=== PATIENT | female | born 1935 | race Caucasian/White ===

== ENCOUNTER → 2017-04-08 | Outpatient (CLI) | payer MEDICARE, OTHER | END | disposition home or self-care (01) | LOC: CFH 10:32 | PROVIDERS: ATTEND Physician Assistant | DX: M47.26 Other spondylosis with radiculopathy, lumbar region (principal); M48.06 Spinal stenosis, lumbar region; M12.88 Other specific arthropathies, not elsewhere classified, other specified site; M79.604 Pain in right leg | CPT/HCPCS: 72148 ==

== ENCOUNTER → 2018-05-29 | Outpatient (CLI) | payer OTHER | END | disposition home or self-care (01) | LOC: CFH 09:36 | PROVIDERS: ATTEND Internal Medicine | DX: Z13.820 Encounter for screening for osteoporosis (principal); M85.80 Other specified disorders of bone density and structure, unspecified site; N95.1 Menopausal and female climacteric states | CPT/HCPCS: 77080 ==

== ENCOUNTER → 2019-01-08 | Outpatient (CLI) | payer OTHER ==
[~2019-01-08] MED LIST: ATOR20TA37 PO; CETI10TA24 PO; CHOL200024 PO; CRAN500C7 PO; FAMO20TA7 PO; FLUT9.9S NS; LACT1CAP40 PO; LIDOCAINE 1%, 20ML ONE; LIDOCAINE 1%-EPI 1:100K, 30ML ONE; MULT-257 PO; PROP15DR EACHEYE; SODIUM BICARBONATE 4.0%, 5ML ONE
== END | disposition home or self-care (01) ==
LOC: CFH 08:55
PROVIDERS: ATTEND Surgery
DX: C50.912 Malignant neoplasm of unspecified site of left female breast (principal)
CPT/HCPCS: 19281; J3490

== ENCOUNTER 2019-01-20 14:46 | Outpatient (CLI) | payer OTHER ==
[~2019-01-20 14:46] MED LIST changes: -LIDOCAINE 1%, 20ML ONE; -LIDOCAINE 1%-EPI 1:100K, 30ML ONE; -SODIUM BICARBONATE 4.0%, 5ML ONE
== END 2019-01-20 23:59 | disposition home or self-care (01) ==
LOC: RAD 14:46
PROVIDERS: ATTEND Surgery
DX: C50.412 Malignant neoplasm of upper-outer quadrant of left female breast (principal); R59.1 Generalized enlarged lymph nodes
CPT/HCPCS: 38792; A9541

== ENCOUNTER 2019-01-21 05:44 | Day surgery (SDC) | payer OTHER ==
[~2019-01-21] VITALS: Ht 154.9 cm; Wt 79.1 kg
[~2019-01-21 05:44] MED LIST changes: +LIDOCAINE-MPF 1%, 5ML ONE
[2019-01-21] MEDS ORDERED: LACTATED RINGERS 1,000 ML IV SCH (06:01)
[2019-01-21] MEDS ORDERED: CLINDAMYCIN PMX 900MG/50ML 50 ML IV STA (06:04)
[2019-01-21 06:20] VITALS: BP 135/82
[2019-01-21] MEDS ORDERED: ACETAMINOPHEN 500 MG TABLET PO ONE (06:30)
[2019-01-21] MEDS ORDERED: ONDANSETRON ODT 8 MG PO ONE (06:30)
[2019-01-21] MEDS ORDERED: GABAPENTIN 300 MG CAPSULE PO ONE (06:30)
[2019-01-21] MEDS ORDERED: SCOPOLAMINE PATCH, 1.5MG PATCH.TD72 TD ONE (06:30)
[2019-01-21] MEDS ORDERED: FENTANYL PF 250 MCG/5ML ONE (06:56)
[2019-01-21] MEDS ORDERED: CEFAZOLIN 1,000 MG ONE (06:58)
[2019-01-21] MEDS ORDERED: ISOSULFAN BLUE 10 MG/ML, 5ML IV ONE (06:58)
[2019-01-21] MEDS ORDERED: BUPIVACAINE/PF-EPI 0.5% 1:200K ONE (06:58)
[2019-01-21] MEDS ORDERED: BACITRACIN 50,000 UNIT ONE (06:59)
[2019-01-21] MEDS ORDERED: DEXAMETHASONE 4 MG/ML, 1ML ONE (07:28)
[2019-01-21] MEDS ORDERED: ONDANSETRON 2MG/ML, 2ML ONE (07:28)
[2019-01-21] MEDS ORDERED: MEPERIDINE/PF 25MG/0.5ML IVPush PRN (08:30)
[2019-01-21] MEDS ORDERED: FENTANYL PF 100 MCG/2ML IV PRN (08:30)
[2019-01-21] MEDS ORDERED: HYDROmorphone 2 MG/ML, 1ML IVPush PRN (08:30)
[2019-01-21] MEDS ORDERED: ONDANSETRON 2MG/ML, 2ML IV PRN (08:30)
[2019-01-21] MEDS ORDERED: PROMETHAZINE 25 MG/ML, 1ML IV PRN (08:30)
[2019-01-21] MEDS ORDERED: OXYcodone 5 MG/5 ML ORAL.SOL UDC PO PRN (08:30)
[2019-01-21] MEDS ORDERED: LABETALOL 5MG/ML, 20ML IV PRN (08:30)
[2019-01-21] MEDS ORDERED: hydrALAzine 20 MG/ML, 1ML IV PRN (08:30)
[2019-01-21] MEDS ORDERED: ROCURONIUM 10MG/ML,5ML ONE (08:41)
[2019-01-21] MEDS ORDERED: PROPOFOL 10 MG/ML, 20ML ONE (08:41)
== END 2019-01-21 14:15 | disposition home or self-care (01) ==
LOC: OUT 05:44
PROVIDERS: ATTEND Surgery
DX: D05.12 Intraductal carcinoma in situ of left breast (principal); R59.1 Generalized enlarged lymph nodes; E78.5 Hyperlipidemia, unspecified; E66.9 Obesity, unspecified; Z68.32 Body mass index [BMI] 32.0-32.9, adult; Z87.891 Personal history of nicotine dependence; Z88.0 Allergy status to penicillin; Z88.8 Allergy status to other drugs, medicaments and biological substances
CPT/HCPCS: 19301; 38525; 76098; 88305; 88307; 88329; 88333; C1729; J1100; J2405; J2704; J3010; J7120; Q0162; J0690

== ENCOUNTER 2019-02-08 08:02 | Outpatient (CLI) | payer OTHER ==
[~2019-02-08 08:02] MED LIST changes: -LIDOCAINE-MPF 1%, 5ML ONE
== END 2019-02-08 23:59 | disposition home or self-care (01) ==
LOC: ROC 08:02
PROVIDERS: ATTEND Radiology Radiation Oncology
DX: C50.912 Malignant neoplasm of unspecified site of left female breast (principal); E78.5 Hyperlipidemia, unspecified
CPT/HCPCS: 99214; G0463

== ENCOUNTER → 2019-11-16 | Outpatient (CLI) | payer OTHER ==
[~2019-11-16] MED LIST changes: +ANAS1TAB PO; +BIOT25005 PO; -CETI10TA24 PO; +CETI10TA26 PO; +OFLO5DRO7 EACHEYE; +PREDNISONE ACETATE EACHEYE
== END | disposition home or self-care (01) ==
LOC: STAR 13:37
PROVIDERS: ATTEND Orthopaedic Surgery
DX: Z01.818 Encounter for other preprocedural examination (principal); M13.842 Other specified arthritis, left hand; G56.01 Carpal tunnel syndrome, right upper limb
CPT/HCPCS: 93005

== ENCOUNTER 2019-11-25 05:59 | Day surgery (SDC) | payer OTHER ==
[~2019-11-25] VITALS: Ht 152.4 cm; Wt 78.0 kg
[2019-11-25 06:22] VITALS: BP 153/86
[2019-11-25] MEDS ORDERED: LACTATED RINGERS 1,000 ML IV SCH (06:26)
[2019-11-25] MEDS ORDERED: FENTANYL PF 100 MCG/2ML ONE (06:36)
[2019-11-25] MEDS ORDERED: PROPOFOL 10 MG/ML, 20ML ONE (06:37)
[2019-11-25] MEDS ORDERED: BUPIVACAINE/PF 0.5% ONE (06:39)
[2019-11-25] MEDS ORDERED: LIDOCAINE 1%, 20ML ONE ×2 (06:40→08:14)
[2019-11-25] MEDS ORDERED: CLINDAMYCIN 150 MG/ML, 6ML ONE (06:44)
[2019-11-25] MEDS ORDERED: BETAMETHASONE 6 MG/ML, 5ML IM ONE ×2 (07:08→07:25)
[2019-11-25] MEDS ORDERED: LIDOCAINE 1%, 20ML INFIL ONE (07:23)
[2019-11-25] MEDS ORDERED: BUPIVACAINE/PF 0.5% INFIL ONE (07:24)
[2019-11-25] MEDS ORDERED: MEPERIDINE/PF 25MG/ML,1ML IVPush PRN (07:30)
[2019-11-25] MEDS ORDERED: LABETALOL 5MG/ML, 20ML IV PRN (07:30)
[2019-11-25] MEDS ORDERED: ACETAMINOPHEN 325 MG TABLET PO PRN (07:30)
[2019-11-25] MEDS ORDERED: FENTANYL PF 100 MCG/2ML IV PRN (07:30)
[2019-11-25] MEDS ORDERED: ONDANSETRON 2MG/ML, 2ML IV PRN (07:30)
[2019-11-25] MEDS ORDERED: OXYcodone 5 MG/5 ML ORAL.SOL UDC PO PRN (07:30)
[2019-11-25] MEDS ORDERED: hydrALAzine 20 MG/ML, 1ML IV PRN (07:30)
== END 2019-11-25 09:03 | disposition home or self-care (01) ==
LOC: OUT 05:59
PROVIDERS: ATTEND Orthopaedic Surgery
DX: G56.01 Carpal tunnel syndrome, right upper limb (principal); M18.12 Unilateral primary osteoarthritis of first carpometacarpal joint, left hand; E78.5 Hyperlipidemia, unspecified; K21.9 Gastro-esophageal reflux disease without esophagitis; C50.919 Malignant neoplasm of unspecified site of unspecified female breast; Z79.899 Other long term (current) drug therapy; Z88.0 Allergy status to penicillin; Z88.8 Allergy status to other drugs, medicaments and biological substances
CPT/HCPCS: 20600; 64721; J0702; J2704; J3010; J7120

== ENCOUNTER → 2021-05-28 | Outpatient (CLI) | payer OTHER ==
[~2021-05-28] MED LIST changes: -CETI10TA26 PO; +CETI10TA76 PO; +CHOL20009 PO; +FEXO1TAB29 PO; +GABA600T7 PO; -LACT1CAP40 PO; +LACT1CAP45 PO
[2021-05-28 12:58] LABS: BASOPHILS % (AUTO) 1 % (0-1); EOSINOPHILS % (AUTO) 1 % (1-7); LYMPHOCYTES % (AUTO) 24 % (22-44); MEAN CORPUSCULAR HEMOGLOBIN 29.2 pg (27.0-34.8); MEAN CORPUSCULAR HGB CONC 33.1 g/dL (32.4-35.8); MEAN PLATELET VOLUME 6.9 fL (7.4-10.4); MONOCYTES % (AUTO) 7 % (2-9); NEUTROPHILS % (AUTO) 68 % (42-75); PLATELET COUNT 242 x10^3/uL (130-400); RED CELL DISTRIBUTION WIDTH 15.6 % (9.6-15.2)
[2021-05-28 13:15] LABS: ANION GAP 7 mmol/L (5-15); CALCIUM 9.8 mg/dL (8.5-10.1); CHLORIDE 109 mmol/L (98-107); CREATININE 0.74 mg/dL (0.55-1.02)
[2021-05-28 13:16] LABS: MICROSCOPIC AUTO
[2021-05-28 13:20] LABS: INTERNATIONAL NORMALIZED RATIO 0.96 (0.93-1.1); PROTHROMBIN TIME 10.3 Seconds (9.6-11.5)
== END | disposition home or self-care (01) ==
LOC: STAR 11:25
PROVIDERS: ATTEND Neurological Surgery
DX: Z01.818 Encounter for other preprocedural examination (principal); M47.817 Spondylosis without myelopathy or radiculopathy, lumbosacral region; M48.061 Spinal stenosis, lumbar region without neurogenic claudication
CPT/HCPCS: 36415; 71046; 72131; 80048; 81001; 85025; 85610; 85730; 87077; 87086; 93005

== ENCOUNTER 2021-06-06 08:44 | Inpatient (IN) | payer OTHER, MEDICARE ==
[2021-06-04 15:15] LABS: MICROSCOPIC AUTO
[~2021-06-06] VITALS: Ht 152.4 cm; Wt 81.1 kg
[~2021-06-06 08:44] MED LIST changes: +BUPIVACAINE/PF 0.25% ONE; +EPINEPHRINE 1 MG/ML, 1ML ONE; +GENTAMICIN 80 MG/2 ML ONE; +VANCOMYCIN 1,000 MG ONE
[2021-06-06 10:12] VITALS: BP 162/84
[2021-06-06] MEDS ORDERED: CHLORHEXIDINE 15 ML UDC ONE (10:12)
[2021-06-06] MEDS ORDERED: CHLORHEXIDINE 15 ML UDC PO ONE (10:30)
[2021-06-06] MEDS ORDERED: LACTATED RINGERS 1,000 ML IV SCH (10:30)
[2021-06-06] MEDS ORDERED: SUCCINYLCHOLINE 20 MG/ML, 10ML ONE (10:34)
[2021-06-06] MEDS ORDERED: FENTANYL PF 250 MCG/5ML ONE (10:34)
[2021-06-06] MEDS ORDERED: GLYCOPYRROLATE 0.2MG/1ML, 5ML ONE (10:34)
[2021-06-06] MEDS ORDERED: NEOSTIGMINE 1 MG/ML, 10ML ONE (10:34)
[2021-06-06] MEDS ORDERED: DEXAMETHASONE 4 MG/ML, 1ML ONE (10:34)
[2021-06-06] MEDS ORDERED: ROCURONIUM 10MG/ML,5ML ONE (10:34)
[2021-06-06] MEDS ORDERED: PROPOFOL 10 MG/ML, 20ML ONE (10:34)
[2021-06-06] MEDS ORDERED: CEFAZOLIN 1,000 MG ONE (10:34)
[2021-06-06] MEDS ORDERED: ONDANSETRON 2MG/ML, 2ML ONE (10:34)
[2021-06-06] MEDS ORDERED: CLINDAMYCIN 150 MG/ML, 6ML ONE (11:20)
[2021-06-06] MEDS ORDERED: ALBUTEROL SULFATE 2.5 MG/3 ML NPPB PRN (11:30)
[2021-06-06] MEDS ORDERED: HALOPERIDOL 5 MG/ML IV PRN (11:30)
[2021-06-06] MEDS ORDERED: OXYcodone 5 MG/5 ML ORAL.SOL UDC PO PRN (11:30)
[2021-06-06] MEDS ORDERED: hydrALAzine 20 MG/ML, 1ML IV PRN (11:30)
[2021-06-06] MEDS ORDERED: HYDROmorphone 2 MG/ML, 1ML IVPush PRN (11:30)
[2021-06-06] MEDS ORDERED: PROMETHAZINE 25 MG/ML, 1ML IV PRN (11:30)
[2021-06-06] MEDS ORDERED: LABETALOL 5MG/ML, 20ML IV PRN (11:30)
[2021-06-06] MEDS ORDERED: HEPARIN 1,000 UNITS/ML, 30ML IVPB ONE (12:30)
[2021-06-06] MEDS ORDERED: VANCOMYCIN 1,000 MG IM ONE ×2 (12:39→12:40)
[2021-06-06] MEDS ORDERED: BUPIVACAINE/PF-EPI 0.25% 1:200K INFIL ONE (12:39)
[2021-06-06] MEDS ORDERED: OXYcodone 5 MG/5 ML ORAL.SOL UDC ONE (15:05)
[2021-06-06] MEDS ORDERED: FENTANYL PF 100 MCG/2ML ONE ×2 (15:05→16:03)
[2021-06-06] MEDS ORDERED: ACETAMINOPHEN 650 MG/20.3 ML UDC ONE (15:05)
[2021-06-06] MEDS: FENTANYL PF 100 MCG/2ML IV PRN ×3 (15:07→16:04)
[2021-06-06] MEDS ORDERED: HYDROmorphone PCA 30 MG/30 ML IV PRN (15:30)
[2021-06-06] MEDS ORDERED: BISACODYL 10 MG SUPP PR PRN (18:00)
[2021-06-06] MEDS ORDERED: OXYcodone IR 5MG TABLET PO PRN (18:00)
[2021-06-06] MEDS ORDERED: MAGNESIUM HYDROXIDE 8%, 30ML UDC PO PRN (18:00)
[2021-06-06] MEDS ORDERED: DIPHENHYDRAMINE 50 MG/ML, 1ML IVPush PRN (18:00)
[2021-06-06] MEDS ORDERED: morphine SULFATE 10 MG/ML, 1ML IV PRN (18:00)
[2021-06-06] MEDS ORDERED: SODIUM CHLORIDE 0.9% 1,000ML IV PRN (18:00)
[2021-06-06] MEDS ORDERED: DIPHENHYDRAMINE 25 MG CAPSULE PO PRN (18:00)
[2021-06-06] MEDS ORDERED: PROMETHAZINE 25 MG/ML, 1ML IM PRN (18:00)
[2021-06-06] MEDS: CIPROFLOXACIN 500 MG TABLET PO SCH ×2 (18:30→21:13)
[2021-06-06 19:19] VITALS: BP 120/72
[2021-06-06] MEDS: NS + 20MEQ KCL 1,000 ML IV SCH (19:43)
[2021-06-06] MEDS: ARTIFICIAL TEARS 15 DROP/ML BOTTLE OP SCH (21:00)
[2021-06-06] MEDS: FAMOTIDINE 40 MG TABLET PO SCH (21:12)
[2021-06-06] MEDS: ATORVASTATIN 20 MG TABLET PO SCH (21:13)
[2021-06-06] MEDS: GABAPENTIN 100 MG CAPSULE PO SCH (21:13)
[2021-06-06] MEDS: LORATADINE/PSE 5/120MG TAB.ER.12H PO SCH (21:14)
[2021-06-06] MEDS: ONDANSETRON 2MG/ML, 2ML IV PRN (21:14)
[2021-06-06] MEDS ORDERED: GABA-826 PO (22:12)
[2021-06-06 23:34] VITALS: BP 121/77
[2021-06-07 03:14] VITALS: BP 104/66
[2021-06-07 05:47] LABS: BASOPHILS % (AUTO) 0 % (0-1); EOSINOPHILS % (AUTO) 0 % (1-7); LYMPHOCYTES % (AUTO) 9 % (22-44); MEAN CORPUSCULAR HEMOGLOBIN 30.1 pg (27.0-34.8); MEAN CORPUSCULAR HGB CONC 34.4 g/dL (32.4-35.8); MONOCYTES % (AUTO) 9 % (2-9); NEUTROPHILS % (AUTO) 83 % (42-75); PLATELET COUNT 174 x10^3/uL (130-400); RED BLOOD COUNT 3.17 x10^6/uL (3.82-5.3); RED CELL DISTRIBUTION WIDTH 15.6 % (9.6-15.2)
[2021-06-07 05:56] LABS: ANION GAP 5 mmol/L (5-15); CALCIUM 8.1 mg/dL (8.5-10.1); CHLORIDE 107 mmol/L (98-107); CREATININE 0.57 mg/dL (0.55-1.02)
[2021-06-07] MEDS: ARTIFICIAL TEARS 15 DROP/ML BOTTLE OP SCH ×4 (06:17→20:42)
[2021-06-07] MEDS: NS + 20MEQ KCL 1,000 ML IV SCH ×2 (06:17→13:24)
[2021-06-07] MEDS: OXYcodone IR 5MG TABLET PO PRN ×5 (06:18→22:31)
[2021-06-07 08:06] VITALS: BP 98/52
[2021-06-07] MEDS ORDERED: GABAPENTIN 300 MG CAPSULE PO SCH (09:00)
[2021-06-07] MEDS: SENNA/DOCUSATE TABLET PO SCH (09:19)
[2021-06-07] MEDS: GABAPENTIN 100 MG CAPSULE PO SCH ×3 (09:20→20:37)
[2021-06-07] MEDS: FLUTICASONE NASAL SPRAY 16GM NAS SCH (09:20)
[2021-06-07] MEDS: CIPROFLOXACIN 500 MG TABLET PO SCH ×2 (09:20→20:37)
[2021-06-07] MEDS: ANASTROZOLE 1 MG TABLET PO SCH (09:21)
[2021-06-07 13:11] VITALS: BP 104/59
[2021-06-07] MEDS: LORATADINE/PSE 5/120MG TAB.ER.12H PO SCH (17:45)
[2021-06-07 19:07] VITALS: BP 95/53
[2021-06-07] MEDS: FAMOTIDINE 40 MG TABLET PO SCH (20:36)
[2021-06-07] MEDS: ATORVASTATIN 20 MG TABLET PO SCH (20:37)
[2021-06-08 02:12] VITALS: BP 103/65
[2021-06-08 04:43] VITALS: BP 117/74
[2021-06-08 05:50] LABS: BASOPHILS % (AUTO) 0 % (0-1); EOSINOPHILS % (AUTO) 1 % (1-7); LYMPHOCYTES % (AUTO) 20 % (22-44); MEAN CORPUSCULAR HEMOGLOBIN 29.9 pg (27.0-34.8); MEAN CORPUSCULAR HGB CONC 33.8 g/dL (32.4-35.8); MEAN PLATELET VOLUME 7.2 fL (7.4-10.4); MONOCYTES % (AUTO) 8 % (2-9); NEUTROPHILS % (AUTO) 71 % (42-75); PLATELET COUNT 172 x10^3/uL (130-400); RED BLOOD COUNT 3.12 x10^6/uL (3.82-5.3); RED CELL DISTRIBUTION WIDTH 15.7 % (9.6-15.2)
[2021-06-08] MEDS: ARTIFICIAL TEARS 15 DROP/ML BOTTLE OP SCH ×4 (05:52→20:53)
[2021-06-08 05:58] LABS: ANION GAP 5 mmol/L (5-15); CALCIUM 8.1 mg/dL (8.5-10.1); CHLORIDE 108 mmol/L (98-107); CREATININE 0.78 mg/dL (0.55-1.02)
[2021-06-08 06:49] VITALS: BP 109/72
[2021-06-08] MEDS ORDERED: HYDROcodone/APAP 10/325 MG TABLET PO PRN (08:30)
[2021-06-08] MEDS ORDERED: OXYcodone/APAP 5/325MG TABLET PO ONE (08:30)
[2021-06-08] MEDS: FLUTICASONE NASAL SPRAY 16GM NAS SCH (08:45)
[2021-06-08] MEDS: ANASTROZOLE 1 MG TABLET PO SCH (08:47)
[2021-06-08] MEDS: GABAPENTIN 100 MG CAPSULE PO SCH ×3 (08:49→20:54)
[2021-06-08] MEDS: SENNA/DOCUSATE TABLET PO SCH (08:49)
[2021-06-08] MEDS: CIPROFLOXACIN 500 MG TABLET PO SCH ×2 (08:50→20:54)
[2021-06-08] MEDS: ONDANSETRON 2MG/ML, 2ML IV PRN (08:53)
[2021-06-08] MEDS: NS + 20MEQ KCL 1,000 ML IV SCH ×3 (10:07→20:00)
[2021-06-08 15:56] VITALS: BP 106/58
[2021-06-08] MEDS: LORATADINE/PSE 5/120MG TAB.ER.12H PO SCH (17:29)
[2021-06-08 20:11] VITALS: BP 119/52
[2021-06-08] MEDS: ATORVASTATIN 20 MG TABLET PO SCH (20:54)
[2021-06-08] MEDS: FAMOTIDINE 40 MG TABLET PO SCH (20:55)
[2021-06-09 01:39] VITALS: BP 112/57
[2021-06-09] MEDS: ARTIFICIAL TEARS 15 DROP/ML BOTTLE OP SCH ×3 (05:50→17:03)
[2021-06-09] MEDS: NS + 20MEQ KCL 1,000 ML IV SCH ×2 (06:00→16:06)
[2021-06-09 08:50] VITALS: BP 135/77
[2021-06-09] MEDS: FLUTICASONE NASAL SPRAY 16GM NAS SCH (09:45)
[2021-06-09] MEDS: CIPROFLOXACIN 500 MG TABLET PO SCH ×2 (09:47→20:16)
[2021-06-09] MEDS: SENNA/DOCUSATE TABLET PO SCH (09:47)
[2021-06-09] MEDS: GABAPENTIN 100 MG CAPSULE PO SCH ×3 (09:47→20:16)
[2021-06-09] MEDS: OXYcodone IR 5MG TABLET PO PRN (09:48)
[2021-06-09] MEDS: ANASTROZOLE 1 MG TABLET PO SCH (09:54)
[2021-06-09 13:05] VITALS: BP 102/63
[2021-06-09] MEDS: LORATADINE/PSE 5/120MG TAB.ER.12H PO SCH ×2 (16:18→21:00)
[2021-06-09] MEDS ORDERED: HYDR-3248 PO (17:43)
[2021-06-09 19:36] VITALS: BP 130/62
[2021-06-09] MEDS: ONDANSETRON 2MG/ML, 2ML IV PRN (20:13)
[2021-06-09] MEDS: ATORVASTATIN 20 MG TABLET PO SCH (20:16)
[2021-06-09] MEDS ORDERED: FAMOTIDINE 20 MG TABLET PO SCH (21:00)
[2021-06-09] MEDS: ARTIFICIAL TEARS 15 DROP/ML BOTTLE EACHEYE SCH (21:00)
[2021-06-10 01:41] VITALS: BP 112/78
[2021-06-10] MEDS: NS + 20MEQ KCL 1,000 ML IV SCH (02:00)
[2021-06-10] MEDS: ARTIFICIAL TEARS 15 DROP/ML BOTTLE EACHEYE SCH (06:00)
[2021-06-10] MEDS: OXYcodone IR 5MG TABLET PO PRN (06:12)
[2021-06-10 07:11] VITALS: BP 119/61
[2021-06-10] MEDS ORDERED: TEMPLATE NON-FORMULARY MED. (Biotin** 5,000 MG) PO SCH (09:00)
[2021-06-10] MEDS ORDERED: FLUTICASONE NASAL SPRAY 16GM NAS SCH (09:00)
[2021-06-10] MEDS ORDERED: LACTOBACILLUS CHEW TABLET PO SCH (09:00)
[2021-06-10] MEDS ORDERED: MULTIVITAMIN 1 TABLET PO SCH (09:00)
[2021-06-10] MEDS ORDERED: CRANBERRY EXTRACT 4200 MG PO SCH (09:00)
[2021-06-10] MEDS ORDERED: CHOLECALCIFEROL 1,000 UNIT TABLET PO SCH (09:00)
[2021-06-10] MEDS: ANASTROZOLE 1 MG TABLET PO SCH (09:41)
[2021-06-10] MEDS: GABAPENTIN 100 MG CAPSULE PO SCH (09:41)
[2021-06-10] MEDS: CIPROFLOXACIN 500 MG TABLET PO SCH (09:43)
[2021-06-10] MEDS: LORATADINE/PSE 5/120MG TAB.ER.12H PO SCH (09:44)
[2021-06-10] MEDS: SENNA/DOCUSATE TABLET PO SCH (09:45)
[2021-06-10] MEDS: FLUTICASONE NASAL SPRAY 16GM NAS SCH (10:10)
[2021-06-10 11:31] VITALS: BP 114/64
== END 2021-06-10 11:20 | disposition home health service (06) | DRG 455 ==
LOC: OUT 08:44 → 4NE 16:50 → OUT 17:27 → 4NE 17:27
PROVIDERS: ADMIT Neurological Surgery; ATTEND Neurological Surgery
PROC: 0SG0071 Fusion of Lumbar Vertebral Joint with Autologous Tissue Substitute, Posterior Approach, Posterior Column, Open Approach (ICD-10-PCS; 2021-06-06)
PROC: 01NB0ZZ Release Lumbar Nerve, Open Approach (ICD-10-PCS; 2021-06-06)
PROC: 00NY0ZZ Release Lumbar Spinal Cord, Open Approach (ICD-10-PCS; 2021-06-06)
PROC: 0SB20ZZ Excision of Lumbar Vertebral Disc, Open Approach (ICD-10-PCS; 2021-06-06)
PROC: 4A11X4G Monitoring of Peripheral Nervous Electrical Activity, Intraoperative, External Approach (ICD-10-PCS; 2021-06-06)
PROC: 8E0W0CZ Robotic Assisted Procedure of Trunk Region, Open Approach (ICD-10-PCS; 2021-06-06)
PROC: 0SG00AJ Fusion of Lumbar Vertebral Joint with Interbody Fusion Device, Posterior Approach, Anterior Column, Open Approach (ICD-10-PCS; principal; 2021-06-06 12:00)
DX: M47.816 Spondylosis without myelopathy or radiculopathy, lumbar region (principal); M43.16 Spondylolisthesis, lumbar region; M48.062 Spinal stenosis, lumbar region with neurogenic claudication; Z87.891 Personal history of nicotine dependence; Z88.1 Allergy status to other antibiotic agents; Z88.0 Allergy status to penicillin; Z88.2 Allergy status to sulfonamides
CPT/HCPCS: 36415; 72100; 80048; 81001; 85025; 86850; 86900; 87086; 95938; 95941; C1713; C1776; G0378; J0171; J0690; J1100; J1170; J1644; J2405; J2704; J2710; J3010; J3370; J3480; C1762; J0330; J1580; J7120